=== PATIENT | male | born 1980 | race Caucasian/White ===

== ENCOUNTER 2019-07-04 01:32 | Emergency (ER) | payer SELFPAY ==
[~2019-07-04] VITALS: Ht 185.4 cm; Wt 72.6 kg
[~2019-07-04 01:32] MED LIST: BENZ1TAB2 PO; DIPH50TA9 PO; HAL5T PO; OLAN10TA29 PO; TRAZ100T3 PO
[2019-07-04 04:20] VITALS: BP 141/70
== END 2019-07-04 04:34 | disposition left against medical advice (07) ==
LOC: EDBD 01:32 → ER 01:36
DX: G89.29 Other chronic pain (principal); M25.552 Pain in left hip; F17.210 Nicotine dependence, cigarettes, uncomplicated; Z53.29 Procedure and treatment not carried out because of patient's decision for other reasons